=== PATIENT | male | born 1970 | race Caucasian/White ===

== ENCOUNTER 2016-07-06 09:01 | Outpatient (CLI) ==
--- NOTE | 2016-07-06 20:47 | MRI ---
EXAM: Lumbar spine MRI without contrast. HISTORY: Back pain. COMPARISON: None. TECHNIQUE: Multiplanar, multisequence MR images were acquired lumbar spine without contrast. FINDINGS: Five lumbar-type vertebra are present. There is mild thoracolumbar levoscoliosis centere d at L2-3. The lumbar vertebra are normal in height and intrinsic bone marrow signal. Small ventra l and lateral osteophytes are present in the lumbar spine. At L3-4, there is osteophytosis with mil d disc space narrowing and reactive marrow changes along the anterior and lateral endplates bilatera lly. At L4-5, there is disc desiccation and irregular concavity of the endplates with a prominent ch ronic Schmorl's node along the L5 superior endplate with surrounding bright STIR signal edema. Conu s medullaris ends at L1 and has normal signal intensity. 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 The visualized liver, spleen and kidneys are unremarkable. There are no paravertebral masses. T12-L1: The intervertebral disc is normal. There is minor bilateral hypertrophic facet arthropathy and ligamentum flavum hypertrophy and minor right neural foraminal stenosis. L1-2: The intervertebral disc is normal. There is mild bilateral hypertrophic facet arthropathy an d ligamentum flavum hypertrophy without foraminal stenosis. There is a tiny chronic Schmorl's node along the L1 inferior endplate. L2-3: There is a minor disc bulge that may be physiologic which minimally narrows the inferior neur al foramina bilaterally. Mild bilateral hypertrophic facet arthropathy and ligamentum flavum hypert rophy is present and there is minor bilateral foraminal stenosis. L3-4: There is a mild disc bulge and moderate bilateral hypertrophic facet arthropathy and ligament um flavum hypertrophy. This causes mild to moderate spinal stenosis and bilateral foraminal stenosi s. AP diameter of the thecal sac is 6 mm. L4-5: There is a mild disc bulge and mild bilateral hypertrophic facet arthropathy and ligamentum f lavum hypertrophy. This causes mild to moderate spinal stenosis and moderate right and mild to mode rate left neural foraminal stenosis. AP diameter of the thecal sac is 7.6 mm. L5-S1: There is a small posterior disc bulge with a possible tiny superimposed central disc protrus ion. Mild bilateral hypertrophic facet arthropathy and ligamentum flavum hypertrophy is present wit hout significant foraminal stenosis. IMPRESSION: 1. Mild lumbar degenerative spondylosis which in this patient with a developmentally narrow canal c auses mild to moderate spinal stenosis at L3-4 and L4-5. 2. Moderate right and mild to moderate left L4-5 neural foraminal stenosis
== END 2016-07-06 09:02 | disposition home or self-care (01) ==
LOC: RAD 09:01
PROVIDERS: ATTEND Physician Assistant Medical
DX: M54.5 Low back pain (principal)

== ENCOUNTER 2016-11-04 14:19 | Outpatient (CLI) ==
[2016-11-04 15:44] LABS: ERYTHROCYTE SEDIMENTATION RATE 13 mm/hr (0-15); ESR INTERNAL QC INTERNAL QC VALID
[2016-11-06 13:14] LABS: A/G RATIO 1.7 (0.7-1.7); ALPHA-1 GLOBULIN 0.1 g/dL (0.0-0.4); ALPHA-2 GLOBULIN 0.7 g/dL (0.4-1.0); BETA GLOBULIN 0.9 g/dL (0.7-1.3); GAMMA GLOBULIN 0.5 g/dL (0.4-1.8); TOTAL GLOBULINS 2.3 g/dL (2.2-3.9)
[2016-11-06 19:57] LABS: ANTI-NUCLEAR ANTIBODY SCREEN Positive (Negative); RHEUMATOID ARTHRITIS FACTOR < 10.0 IU/mL (0.0-13.9)
== END 2016-11-04 14:20 | disposition home or self-care (01) ==
LOC: LAB 14:19
PROVIDERS: ATTEND Psychiatry & Neurology Neurology
DX: G62.9 Polyneuropathy, unspecified (principal)
CPT/HCPCS: 36415; 82607; 83036; 84165; 85651; 86038; 86430

== ENCOUNTER 2016-11-09 14:28 | Outpatient (CLI) ==
--- NOTE | 2016-11-09 15:19 | DI ---
EXAM: RIGHT ELBOW HISTORY: Pain, recent fall FINDINGS: Right elbow three-view. No fracture, dislocation or significant arthropathy. No visible joint effusion. Swelling of the posterior soft tissues may represent contusion. No well-defined s oft tissue hematoma. IMPRESSION: No fracture or dislocation. No joint effusion. Possible posterior soft tissue contusion.
== END 2016-11-09 14:29 | disposition home or self-care (01) ==
LOC: RAD 14:28
PROVIDERS: ATTEND Physician Assistant Medical
DX: M25.521 Pain in right elbow (principal)

== ENCOUNTER 2018-12-13 11:36 | Outpatient (CLI) | END 2018-12-13 11:37 | disposition home or self-care (01) | LOC: RHC-LAB 11:36 → FCC-LAB 11:37 | PROVIDERS: ATTEND Family Medicine | DX: R10.13 Epigastric pain (principal); R63.4 Abnormal weight loss; M13.0 Polyarthritis, unspecified | CPT/HCPCS: 36415; 80053; 81001; 83690; 84443; 84550; 85025; 85651; 86038; 86430; 87338 ==

== ENCOUNTER 2018-12-23 10:59 | Outpatient (CLI) | END 2018-12-23 11:00 | disposition home or self-care (01) | LOC: LAB 10:59 | PROVIDERS: ATTEND Family Medicine | DX: R10.13 Epigastric pain (principal) | CPT/HCPCS: 87338 ==